=== PATIENT | female | born 1980 | race African-American/Black ===

== ENCOUNTER 2019-03-25 15:41 | Emergency (ER) | payer MEDICAID, OTHER ==
[~2019-03-25] VITALS: Ht 167.6 cm; Wt 68.0 kg
[2019-03-25 16:22] VITALS: BP 122/69
[2019-03-25] MEDS ORDERED: PREDNISONE 20MG TABLET PO ONE (17:30)
== END 2019-03-25 18:00 | disposition home or self-care (01) ==
LOC: ER 15:41
DX: R21 Rash and other nonspecific skin eruption (principal); F12.10 Cannabis abuse, uncomplicated
CPT/HCPCS: 99282; J7512